=== PATIENT | male | born 1955 | race Caucasian/White ===

== ENCOUNTER 2016-04-22 14:37 | Emergency (ER) | payer OTHER ==
[~2016-04-22] VITALS: Ht 165.1 cm; Wt 63.5 kg
[~2016-04-22 14:37] MED LIST: ASPI81TA2 PO; ATOR40TA PO; BISA10SU8 RC; DOCU-170 PO; FLUO10CA26 PO; LEVE500T9 PO; LISI2.5T2 PO; MAGN400O6 PO; MULT-1119 PO; PROC-11 PO; RANI150T8 PO; TOPI100T11 PO; TYL2T PO
[2016-04-22 16:14] LABS: BASOPHILS % (AUTO) 0.6 % (0.0-2.0); DIFF TOTAL % 100 %; EOSINOPHILS # (AUTO) 0.2 /CMM (0.0-0.7); EOSINOPHILS % (AUTO) 2.9 % (0.0-6.0); HEMATOCRIT 39 % (39-51); HEMOGLOBIN 13.4 g/dL (13.5-17.5); LYMPHOCYTES # (AUTO) 1.8 /CMM (0.8-4.8); LYMPHOCYTES % (AUTO) 30.7 % (20.0-44.0); MEAN CORPUSCULAR HEMOGLOBIN 30 PG (26.0-33.0); MEAN CORPUSCULAR HGB CONC 34 g/dl (31.0-36.0); MEAN CORPUSCULAR VOLUME 87 fL (80-96); MONOCYTES # (AUTO) 0.3 /CMM (0.1-1.30); NEUTROPHILS # (AUTO) 3.4 /CMM (1.8-8.9); NEUTROPHILS % (AUTO) 60.8 % (43.0-81.0); PLATELET COUNT (AUTO) 197 /CMM (150-450); RED BLOOD CELL COUNT(AUTO) 4.53 MIL/uL (4.5-6.0); WHITE BLOOD COUNT (AUTO) 5.7 K/uL (4.3-11.0)
[2016-04-22 16:17] LABS: PH,URINE 7.5 (5.0-8.0)
[2016-04-22 16:18] LABS: ADD UA MICROSCOPIC NO; KETONES,URINE Negative (NEGATIVE); LEUKOCYTE ESTERASE ,URINE Negative (NEGATIVE)
[2016-04-22 16:22] LABS: ANION GAP 10 (5-14); CALCIUM, SERUM 8.3 mg/dL (8.5-10.1); CARBON DIOXIDE 28 mmol/L (21-32); CHLORIDE 108 mmol/L (98-107); CREATININE 0.9 mg/dL (0.6-1.3); GFR 87 mL/min (>60); GLUCOSE 110 mg/dL (74-106); POTASSIUM 3.8 mmol/L (3.5-5.1); SODIUM SERUM 142 mmol/L (136-145); UREA NITROGEN, BLOOD 14 mg/dL (7-18)
[2016-04-22 16:25] LABS: CANNABINOID, URINE NEGATIVE (NEGATIVE); PHENCYCLIDINE SCREEN,URINE NEGATIVE (NEGATIVE)
[2016-04-22 16:37] LABS: ACETAMINOPHEN 1 ug/ml (10-30); ALANINE AMINOTRANSFERASE 24 U/L (12-78); ALBUMIN 3.4 g/dL (3.4-5.0); ASPARTATE AMINOTRANSFERASE 13 U/L (15-37); BILIRUBIN,DIRECT 0.1 mg/dL (0.0-0.2); BILIRUBIN,TOTAL 0.6 mg/dL (0.2-1.0); INDIRECT BILIRUBIN 0.5 mg/dL (0.0-1.1); TOTAL PROTEIN, SERUM 6.7 g/dL (6.4-8.2)
[2016-04-22 16:39] LABS: SALICYLATE 0.2 mg/dL (2.8-20.0)
[2016-04-22 18:50] VITALS: BP 130/78
== END 2016-04-22 18:51 | disposition home or self-care (01) ==
LOC: ER 14:39
DX: R45.1 Restlessness and agitation (principal); G40.909 Epilepsy, unspecified, not intractable, without status epilepticus; R40.4 Transient alteration of awareness; I10 Essential (primary) hypertension; I25.10 Atherosclerotic heart disease of native coronary artery without angina pectoris; K21.9 Gastro-esophageal reflux disease without esophagitis; E11.9 Type 2 diabetes mellitus without complications; F32.9 Major depressive disorder, single episode, unspecified; E78.5 Hyperlipidemia, unspecified; G47.00 Insomnia, unspecified; Z79.82 Long term (current) use of aspirin
CPT/HCPCS: 36415; 70450; 80048; 80076; 80305; 81001; 85025; 99285; G0480; G0481; G0482; 81000-TC; A4606; G6038-TC; G6039-TC; G6040-TC; Z7610